=== PATIENT | male | born 1950 | race Two or more races ===

== ENCOUNTER 2025-09-03 10:45 | Inpatient (IN) | payer OTHER ==
[~2025-09-03] VITALS: Ht 182.9 cm; Wt 69.4 kg
[2025-09-03] MEDS ORDERED: GLIMEPIRIDE2 MG (15:29)
[2025-09-03] MEDS ORDERED: METFORMIN HCL1000 M1 PO (15:29)
[2025-09-03] MEDS ORDERED: PLAVIX75 MG PO (15:30)
[2025-09-03] MEDS ORDERED: COZAAR100 MG PO (15:30)
[2025-09-03] MEDS ORDERED: LEVOTHYROXINE25 MCG PO (15:30)
[2025-09-03] MEDS ORDERED: LIPITOR20 MG PO (15:30)
[2025-09-03] MEDS ORDERED: NORVASC2.5 M1 PO (15:30)
[2025-09-11] MEDS ORDERED: levoFLOXacin IN DEXTROSE 5 % 5 MG/ML PIGGYBAG IV ONE (07:04)
[2025-09-11] MEDS ORDERED: METRONIDAZOLE/SODIUM CHLORIDE 500 MG/100 ML PIGGYBACK IV ONE (07:04)
[2025-09-11] MEDS ORDERED: LIDOCAINE HCL 1%/EPINEPHRINE 20ML VIAL IJ ONE (07:51)
[2025-09-11] MEDS ORDERED: SUGAMMADEX SODIUM 200 MG/2 ML VIAL IV ONE (07:51)
[2025-09-11] MEDS ORDERED: BUPIVACAINE HCL/MPF 0.5% 30ML VIAL ONE (07:51)
[2025-09-11] MEDS ORDERED: MORPHINE SULFATE 4 MG/ML CARTRIDGE IV PRN (09:30)
[2025-09-11] MEDS ORDERED: DEXTROSE 50 % IN WATER 0.5 G/ML DISP.SYRIN IV PRN ×2 (09:30→12:15)
[2025-09-11] MEDS ORDERED: OxyCODONE HCL 5 MG TABLET (ROXICODONE) PO PRN (09:30)
[2025-09-11] MEDS ORDERED: ONDANSETRON HCL 2 MG/ML VIAL IV PRN (09:30)
[2025-09-11] MEDS ORDERED: RINGERS SOLUTION,LACTATED 1,000 ML IV SCH (09:30)
[2025-09-11] MEDS ORDERED: ENALAPRILAT DIHYDRATE 1.25 MG/ML VIAL IV ONE (09:57)
[2025-09-11] MEDS ORDERED: LEVALBUTEROL HCL 0.63 MG/3 ML SOLUTION IH ONE (11:00)
[2025-09-11] MEDS ORDERED: INSULIN LISPRO 1,000 UNIT/10 ML UNITS SUBCUTANEO PRN (12:15)
[2025-09-11] MEDS ORDERED: ENALAPRILAT DIHYDRATE 1.25 MG/ML VIAL IV PRN (12:15)
[2025-09-11] MEDS ORDERED: INSULIN LISPRO 1,000 UNIT/10 ML UNITS SUBCUTANEO ONE (12:30)
[2025-09-11 13:46] LABS: BASO % 0.3 % (0.1-1.2); EOS # 0.03 (0.04-0.54); EOS % 0.4 % (0.7-7.0); LYMPH # 0.58 (1.18-3.74); LYMPH % 7.4 % (19.3-53.1); MEAN PLATELET VOLUME 9.10 fl (9.4-12.4); MONO # 0.51 (0.24-0.82); MONO % 6.5 % (4.7-12.5); NEUT # 6.67 (1.56-6.13); NEUT % 85.0 % (34.0-71.1); RED CELL DISTRIBUTION WIDTH 12.8 % (11.6-14.4)
[2025-09-11] MEDS ORDERED: ACETAMINOPHEN 500 MG GEL..CAP PO SCH (14:00)
[2025-09-11 14:28] LABS: BUN CREA RATIO 16.0 (7.0-25.0); CREATININE SERUM 1.29 mg/dL (0.70-1.30); GFR 54.01
[2025-09-11 15:08] LABS: BASO % 0.4 % (0.1-1.2); EOS # 0.05 (0.04-0.54); EOS % 0.6 % (0.7-7.0); LYMPH # 0.65 (1.18-3.74); LYMPH % 8.1 % (19.3-53.1); MEAN PLATELET VOLUME 9.10 fl (9.4-12.4); MONO # 0.62 (0.24-0.82); MONO % 7.8 % (4.7-12.5); NEUT # 6.61 (1.56-6.13); NEUT % 82.8 % (34.0-71.1); RED CELL DISTRIBUTION WIDTH 12.8 % (11.6-14.4)
[2025-09-11 15:15] LABS: GLUCOSE FASTING 268.0 mg/dL (65-100); OSMOLALITY SERUM 295.0 MOSM/KG (275-295)
[2025-09-11] MEDS ORDERED: GABAPENTIN 300 MG CAPSULE PO SCH (17:00)
[2025-09-11] MEDS ORDERED: LEVALBUTEROL HCL 0.63 MG/3 ML SOLUTION IH SCH (18:00)
[2025-09-11] MEDS ORDERED: MAGNESIUM SULFATE IN WATER 2 GM/50 ML PIGGYBAG IV ONE (19:30)
[2025-09-11] MEDS ORDERED: FAMOTIDINE/PF 20 MG/2 ML VIAL IV PUSH SCH (21:00)
[2025-09-11 23:13] LABS: BASO % 0.1 % (0.1-1.2); EOS # 0.02 (0.04-0.54); EOS % 0.3 % (0.7-7.0); LYMPH # 0.35 (1.18-3.74); LYMPH % 4.4 % (19.3-53.1); MEAN PLATELET VOLUME 9.80 fl (9.4-12.4); MONO # 0.63 (0.24-0.82); MONO % 7.9 % (4.7-12.5); NEUT # 6.97 (1.56-6.13); NEUT % 87.0 % (34.0-71.1); RED CELL DISTRIBUTION WIDTH 14.6 % (11.6-14.4)
[2025-09-12] MEDS ORDERED: LEVALBUTEROL HCL 0.63 MG/3 ML SOLUTION IH ONE ×2 (02:27→12:24)
[2025-09-12] MEDS ORDERED: FAMOTIDINE/PF 20 MG/2 ML VIAL ONE (04:33)
[2025-09-12] MEDS ORDERED: PATIENTS OWN MEDICATION (MEDICAMENTO EN PISO) PO SCH (06:00)
[2025-09-12 06:28] LABS: BASO % 0.3 % (0.1-1.2); EOS # 0.04 (0.04-0.54); EOS % 0.5 % (0.7-7.0); LYMPH # 0.50 (1.18-3.74); LYMPH % 6.5 % (19.3-53.1); MEAN PLATELET VOLUME 9.40 fl (9.4-12.4); MONO # 0.77 (0.24-0.82); MONO % 10.0 % (4.7-12.5); NEUT # 6.35 (1.56-6.13); NEUT % 82.3 % (34.0-71.1); RED CELL DISTRIBUTION WIDTH 14.7 % (11.6-14.4)
[2025-09-12 06:45] LABS: BUN CREA RATIO 12.0 (7.0-25.0); CREATININE SERUM 1.13 mg/dL (0.70-1.30); GFR 62.92; GLUCOSE FASTING 161.0 mg/dL (65-100); OSMOLALITY SERUM 293.0 MOSM/KG (275-295)
[2025-09-12] MEDS ORDERED: 0.9 % SODIUM CHLORIDE 1,000 ML IV SCH (08:15)
[2025-09-12] MEDS ORDERED: AMLODIPINE BESYLATE 2.5 MG TABLET PO SCH (09:00)
[2025-09-12] MEDS ORDERED: LOSARTAN POTASSIUM 100 MG TABLET PO SCH (09:00)
[2025-09-12] MEDS ORDERED: Cyanocobalamin/Mecobalamin 1 TAB.SL SL SCH (09:00)
[2025-09-12] MEDS ORDERED: SOD FERRIC GLUC COMPLX/SUCROSE 62.5 MG in 0.9 % SODIUM CHLORIDE 50 ML IV SCH (09:00)
[2025-09-12 15:00] VITALS: BP 129/72; O2SAT 98
[2025-09-12] MEDS ORDERED: GABAPENTIN 300 MG CAPSULE PO ONE (15:44)
[2025-09-12] MEDS ORDERED: ACETAMINOPHEN 500 MG GEL..CAP PO ONE ×3 (15:44→15:45)
[2025-09-12] MEDS ORDERED: ENOXAPARIN SODIUM 40 MG/0.4 ML SYRINGE SUBCUTANEO ONE (15:44)
[2025-09-12] MEDS ORDERED: ENOXAPARIN SODIUM 40 MG/0.4 ML SYRINGE SUBCUTANEO SCH (17:00)
[2025-09-12] MEDS ORDERED: ATORVASTATIN CALCIUM 20 MG TABLET PO SCH (17:00)
[2025-09-12 17:21] VITALS: BP 125/64
[2025-09-12 22:09] VITALS: O2SAT 100
[2025-09-13] VITALS (9 sets, daily range): BP systolic 131–148; BP diastolic 54–67; O2SAT 90–98
[2025-09-13 07:09] LABS: BASO % 0.4 % (0.1-1.2); EOS # 0.18 (0.04-0.54); EOS % 2.7 % (0.7-7.0); LYMPH # 0.63 (1.18-3.74); LYMPH % 9.4 % (19.3-53.1); MEAN PLATELET VOLUME 9.60 fl (9.4-12.4); MONO # 0.47 (0.24-0.82); MONO % 7.0 % (4.7-12.5); NEUT # 5.37 (1.56-6.13); NEUT % 80.2 % (34.0-71.1); RED CELL DISTRIBUTION WIDTH 14.0 % (11.6-14.4)
[2025-09-13 07:30] LABS: BUN CREA RATIO 9.0 (7.0-25.0); CREATININE SERUM 0.9 mg/dL (0.70-1.30); GFR 81.82; GLUCOSE FASTING 133.0 mg/dL (65-100); OSMOLALITY SERUM 285.0 MOSM/KG (275-295)
[2025-09-13] MEDS ORDERED: ENOXAPARIN SODIUM 40 MG/0.4 ML SYRINGE SUBCUTANEO SCH (09:00)
[2025-09-13] MEDS ORDERED: MAGNESIUM SULFATE IN WATER 50 ML IV NR (10:00)
[2025-09-13] MEDS ORDERED: LEVALBUTEROL HCL 0.63 MG/3 ML SOLUTION IH SCH (12:00)
[2025-09-13] MEDS ORDERED: IPRATROPIUM BROMIDE 0.5 MG/2.5 ML AMPUL.NEB IH SCH (12:00)
[2025-09-13] MEDS ORDERED: AMINO ACIDS/PROTEIN HYDROLYS 30 ML BLIST.PACK PO SCH (17:00)
[2025-09-14] VITALS (7 sets, daily range): BP systolic 122–152; BP diastolic 62–70; O2SAT 87–97
[2025-09-14] MEDS ORDERED: GABAPENTIN300 MG PO (14:14)
[2025-09-14] MEDS ORDERED: PAIN RELIEVER500 M2 PO (14:14)
== END 2025-09-14 22:12 | disposition home or self-care (01) | DRG 330 ==
LOC: O/R 09-11 06:00 → SURG 09-11 06:00 → SURH 09-11 10:45 → O/R 09-11 17:28 → SURG 09-12 15:28
PROVIDERS: Internal Medicine Geriatric Medicine; ADMIT Surgery; ATTEND Surgery
PROC: 07BC4ZZ Excision of Pelvis Lymphatic, Percutaneous Endoscopic Approach (ICD-10-PCS; 2025-09-11)
PROC: 0DJD8ZZ Inspection of Lower Intestinal Tract, Via Natural or Artificial Opening Endoscopic (ICD-10-PCS; 2025-09-11)
PROC: 3E0F7GC Introduction of Other Therapeutic Substance into Respiratory Tract, Via Natural or Artificial Opening (ICD-10-PCS; 2025-09-11)
PROC: 0DTN4ZZ Resection of Sigmoid Colon, Percutaneous Endoscopic Approach (ICD-10-PCS; principal; 2025-09-11 13:45)
PROC: 4A12X4Z Monitoring of Cardiac Electrical Activity, External Approach (ICD-10-PCS; 2025-09-12)
DX: C18.7 Malignant neoplasm of sigmoid colon (principal); E87.29 Other acidosis; I11.9 Hypertensive heart disease without heart failure; E03.8 Other specified hypothyroidism; E11.9 Type 2 diabetes mellitus without complications; Z79.4 Long term (current) use of insulin

== ENCOUNTER 2025-10-26 06:00 | Day surgery (SDC) | payer OTHER ==
[~2025-10-26 06:00] MED LIST: COZAAR100 MG PO; GABAPENTIN300 MG PO; GLIMEPIRIDE2 MG; LEVOTHYROXINE25 MCG PO; LIPITOR20 MG PO; METFORMIN HCL1000 M1 PO; NORVASC2.5 M1 PO; PAIN RELIEVER500 M2 PO; PLAVIX75 MG PO; VANCOMYCIN HCL 1,000 MG VIAL IV SCH
[2025-10-26] MEDS ORDERED: CEFAZOLIN SODIUM 1,000 MG VIAL ONE (08:41)
[2025-10-26] MEDS ORDERED: TRAM1TAB98 PO (11:21)
[2025-10-26] MEDS ORDERED: INSULIN REGULAR, HUMAN 1,000 UNIT/10 ML UNITS SUBCUTANEO ONE (11:30)
[2025-10-26] MEDS ORDERED: INSULIN REGULAR, HUMAN 1,000 UNIT/10 ML UNITS IV ONE ×2 (11:30)
[2025-10-29] MEDS ORDERED: VANCOMYCIN HCL 1,000 MG VIAL IV ONE (14:45)
== END 2025-10-26 14:30 | disposition home or self-care (01) ==
LOC: CIR.AMB 06:00
PROVIDERS: ATTEND Surgery
DX: C18.7 Malignant neoplasm of sigmoid colon (principal)
CPT/HCPCS: 36561; C1751